=== PATIENT | female | born 1930 | race Caucasian/White ===

== ENCOUNTER 2017-11-22 19:49 | Inpatient (IN) | payer MEDICARE, BC ==
[~2017-11-22] VITALS: Ht 157.5 cm; Wt 56.2 kg
--- NOTE | ~2017-11-22 | RHP ---
PATIENT: MASON MUÑOZ MEDICAL RECORD: [id number] ACCOUNT: [id number] LOCATION:[facility].1118 : 31 ADMISSION DATE: 11/22/17 REHABILITATION HISTORY AND PHYSICAL EXAMINATION POST ADMISSION PHYSICIAN EXAMINATION POST-ADMISSION PHYSICAL EXAMINATION AND HISTORY AND PHYSICAL DATE OF ADMISSION TO THE REHAB: 11/22/2017 ADMITTING DIAGNOSIS: Spinal cord dysfunction. HISTORY OF PRESENT ILLNESS: The patient admitted to inpatient rehab for spinal cord dysfunction, traumatic and multilevel spondylosis, status post epidural abscess beginning at C6 and extending through T2. She is an 82-year-old female with chronic neck pain, progressively worse, failed outpatient therapy. She also complained of chest wall pain. She had numerous ER visits. She was sent for an outpatient workup, but was unable to tolerate pain pending the workup completion. She presented with neck pain radiating to her jaw along with shortness of breath to the ED on 11/07. She reported that the symptoms started about 2-1/2 weeks prior to her acute hospital admit. She started with pain in her right chest, radiating into her neck. She was found to have pneumonia on the right; however, troponin was elevated. On echocardiogram, she had definite anterior hypokinesis. She had a cardiac catheterization and 2 stents placed after her acute hospital stay. She had hypoxic respiratory failure, positive D-dimer. Her PE was negative. She did have pneumonia, fever up to 102. She had some shortness of breath requiring supplemental O2. She has some nausea and vomiting. She did have positive blood cultures. Her neck pain is improving on IV antibiotics. She was found to have an epidural abscess in the posterior epidural space beginning at C5 and extending through T2. Positive blood cultures were growing out gram-positive cocci. She has been receiving IV antibiotic therapy. On PT eval, the patient was having severe pain with line and having increased weakness on the right side more so than the left. She has been requiring supplemental O2. She is on telemetry. She is going to be on long-term antibiotics and these are all barriers to discharge at the time. She is debilitated secondary to prolonged hospitalization. She is living alone and independent with her mobility and ADLs prior to this. Currently set up for mod assist with her ADLs and is mod assist to total assist for mobility. She and her family plan on her discharging home hopefully to get back to her prior level of functioning. Comorbidities in this patient include acute hypoxic respiratory failure, bilateral pleural effusions, methicillin-sensitive staph, leukocytosis, neck pain, anemia, nutritional problems, hypothyroidism, hyperlipidemia, debility, severe cervicalgia, chest pain, non-Q-wave UT, coronary artery disease, pneumonia, shortness of breath, epidural abscess, CHF with an EF of 30%, and hypertension. PAST MEDICAL HISTORY: Significant for chronic neck pain, hypertension, hypothyroidism, gastroesophageal reflux disease, degenerative arthritis, history of pulmonary tuberculosis, degenerative joint disease, vertigo, and UTI. PAST SURGICAL HISTORY: Includes hysterectomy. ALLERGIES: CODEINE. CURRENT MEDICATIONS: Include Aldactone 25 mg daily, Pravachol 20 mg daily, HISTORY AND PHYSICAL [id number] MASON MUÑOZ metoprolol 50 mg daily, Cozaar 100 mg daily, Synthroid 25 mcg daily, DuoNeb updrafts, hydrochlorothiazide 25 mg daily, Lasix 20 mg daily, enoxaparin 40 mg daily, Plavix 75 mg daily, aspirin chewable 81 mg daily. She is on Ancef 2 grams every 8 hours, Phenergan 25 mg every 6 hours p.r.n., potassium 20 mEq b.i.d., Zofran 4 mg every 4 hours p.r.n., Mycostatin 5 cc q.a.c. and at bedtime, melatonin 3 mg at bedtime p.r.n., Toradol 10 mg every 8 hours p.r.n. pain, Niles 5/325 one tab every 4 hours p.r.n., and Colace 100 mg daily. HABITS: No alcohol or tobacco use. FAMILY HISTORY: Noncontributory. SOCIAL HISTORY: The patient hopes to return back home and get back to her prior level of functioning. REVIEW OF SYSTEMS: GENERAL: Does complain of weakness and fatigue. HEENT: Denies cold, cough, or congestion. CARDIOVASCULAR: Denies chest pain at this time, but has had in the past. PHYSICAL EXAMINATION: VITAL SIGNS: Stable. She is afebrile. GENERAL: Elderly female, in no acute distress upon exam. HEENT: Normocephalic and atraumatic. Mucosa moist. TMs appear normal. NECK: Does have pain with passive range of motion. CARDIOVASCULAR: Regular rate and rhythm. LUNGS: Clear at this time with no wheeze, rhonchi. or rales. ABDOMEN: Benign. EXTREMITIES: No clubbing, cyanosis or edema. NEUROLOGIC: Does have noted proximal muscle weakness. LABORATORY DATA: White count is 5.6, H&H of 11 and 35, and platelet count was noted to be 191. Sodium 137, potassium 4.2, BUN and creatinine of 17 and 1.2, and blood sugar is noted to be 102. ASSESSMENT: This is an 82-year-old female patient admitted to the rehab with a working diagnosis of spinal cord dysfunction. The patient has potential to make improvement. We will institute the following multidisciplinary therapies including, but not limited to physical, occupational, respiratory, speech, nutritional services, prosthetics and orthotics. Given her complex medical condition and risks for more complications, rehabilitation services cannot be provided at a low level of care such as a custodial facility. PLAN: 1. Admit to [facility] for intensive inpatient therapy to include the following disciplines: A. Physical therapy to improve gait, all transfer skills and bed mobility to a modified independent level. B. Occupational therapy to improve activities of daily living to a modified independent level. C. Case management to assist with discharge planning and placement options. D. Nutrition to assist with nutritional needs. E. Rehabilitation nursing to assist in monitoring the patient's underlying medical conditions and to assist with any type of bowel or bladder management. 2. The patient's current medications and medical care will be continued. HISTORY AND PHYSICAL [id number] MASON MUÑOZ 3. The patient will be placed on standard fall precautions. 4. The patient's estimated length of stay is approximately 7-10 days. 5. We will discuss this patient during care team staff meeting this week. I am going to follow up in the a.m. We will make sure that her pain is managed during her stay and we will treat appropriately. TRANSINT:[id number] Voice Confirmation ID: [id number] DOCUMENT ID: [id number] GAYLE notes whether there has been none or any medical/functional change since admission: - No change since preadmission screen. GAYLE attests patient continues to be appropriate for IRF: - Continues to be appropriate. JASPER HEALY MD at 1244 CC: [id number] DICTATION DATE: 11/23/17819 WEIGHER AND GRADER: 11/23/17 0849 DIS IN 12/09/17 [place] [id number] [facility] [place] [address]
[2017-11-22] MEDS ORDERED: BAYER CHEWABLE81 MG PO (21:13)
[2017-11-22] MEDS ORDERED: CALCIUM 500 +1 EAC3 PO (21:14)
[2017-11-22] MEDS ORDERED: ANCEF 1 GM/D5W 51 G1 IV (21:14)
[2017-11-22] MEDS ORDERED: COLACE100 MG PO (21:15)
[2017-11-22] MEDS ORDERED: PLAVIX75 MG PO (21:15)
[2017-11-22] MEDS ORDERED: FUROSEMIDE20 MG PO (21:16)
[2017-11-22] MEDS ORDERED: LOVENOX40 MG/0.4 SC (21:16)
[2017-11-22] MEDS ORDERED: HCTZ25 MG PO (21:17)
[2017-11-22] MEDS ORDERED: HYDROCODON-ACE1 EAC7 PO (21:18)
[2017-11-22] MEDS ORDERED: IPRAT-ALBUT 0.5-3 ML UPD (21:19)
[2017-11-22] MEDS ORDERED: TORADOL10 MG PO (21:20)
[2017-11-22] MEDS ORDERED: FLORAJEN3 CAPS460 MG PO (21:20)
[2017-11-22] MEDS ORDERED: COZAAR100 MG PO (21:21)
[2017-11-22] MEDS ORDERED: SYNTHROID25 MCG (21:21)
[2017-11-22] MEDS ORDERED: MELATONIN 3 MG1 TAB PO (21:22)
[2017-11-22] MEDS ORDERED: METOPROLOL TART50 MG PO (21:22)
[2017-11-22] MEDS ORDERED: NYSTATIN ORAL SU5 ML PO (21:23)
[2017-11-22] MEDS ORDERED: ONDANSETRON4 MG/2 M3 IV (21:24)
[2017-11-22] MEDS ORDERED: K-DUR20 MEQ PO (21:24)
[2017-11-22] MEDS ORDERED: POTASSIUM99 M1 PO (21:24)
[2017-11-22] MEDS ORDERED: PRAVASTATIN SOD10 MG PO (21:25)
[2017-11-22] MEDS ORDERED: PHENERGAN25 MG/ML IM (21:26)
[2017-11-22] MEDS ORDERED: ALDACTONE25 MG PO (21:26)
[2017-11-22 22:25] VITALS: BP 118/57; BMI 22.7
[2017-11-23 08:00] VITALS: BP 132/61
[2017-11-23 08:04] LABS: BASOPHILS 0.4 % (0-2); EOSINOPHILS 3.1 % (0-7); HEMATOCRIT 34.8 % (36.0-48.0); HEMOGLOBIN 10.7 g/dL (12-16); IMMATURE GRANULOCYTES 0.4 % (0-5); LYMPHOCYTES 17.1 % (15-50); MCH 28.5 pg (26.0-34.0); MCHC 30.7 g/dL (31.0-37.0); MCV 92.8 fL (80.0-100.0); MEAN PLATELET VOLUME 10.3 fL (7.4-10.4); MONOCYTES 8.1 % (2-11); NEUTROPHILS 70.9 % (40-80); PLATELET COUNT 191 10x3/uL (130-400); RBC 3.75 10x6/uL (4.00-5.40); RDW 15.4 % (11.5-14.5); WBC 5.6 10x3/uL (4.8-10.8)
[2017-11-23 08:12] LABS: ANION GAP 10.2 mmol/L (8-16); CALCIUM 9.4 mg/dL (8.5-10.1); CREATININE - SERUM 1.2 mg/dL (0.6-1.3); POTASSIUM - SERUM 4.2 mmol/L (3.5-5.1)
[2017-11-23 12:22] VITALS: Ht 157.5 cm; Wt 56.2 kg
[2017-11-23 19:35] VITALS: BP 156/73
[2017-11-24 06:58] LABS: BASOPHILS 0.7 % (0-2); EOSINOPHILS 1.7 % (0-7); HEMATOCRIT 33.7 % (36.0-48.0); HEMOGLOBIN 10.7 g/dL (12-16); IMMATURE GRANULOCYTES 0.2 % (0-5); LYMPHOCYTES 16.2 % (15-50); MCH 29.3 pg (26.0-34.0); MCHC 31.8 g/dL (31.0-37.0); MCV 92.3 fL (80.0-100.0); MEAN PLATELET VOLUME 10.2 fL (7.4-10.4); MONOCYTES 9.4 % (2-11); NEUTROPHILS 71.8 % (40-80); PLATELET COUNT 186 10x3/uL (130-400); RBC 3.65 10x6/uL (4.00-5.40); RDW 15.7 % (11.5-14.5)
[2017-11-24 07:23] LABS: CALCIUM 9.9 mg/dL (8.5-10.1); CARBON DIOXIDE 28.3 mmol/L (21.0-32.0); CREATININE - SERUM 1.2 mg/dL (0.6-1.3); POTASSIUM - SERUM 4.3 mmol/L (3.5-5.1)
[2017-11-24 08:00] VITALS: BP 157/63
[2017-11-24 19:00] VITALS: BP 134/74
[2017-11-25 08:00] VITALS: BP 121/64
[2017-11-25 19:00] VITALS: BP 126/53
[2017-11-26 07:05] LABS: BASOPHILS 0.6 % (0-2); EOSINOPHILS 3.8 % (0-7); HEMATOCRIT 33.1 % (36.0-48.0); HEMOGLOBIN 10.3 g/dL (12-16); IMMATURE GRANULOCYTES 0.2 % (0-5); MCHC 31.1 g/dL (31.0-37.0); MCV 93.2 fL (80.0-100.0); MEAN PLATELET VOLUME 10.5 fL (7.4-10.4); MONOCYTES 10.5 % (2-11); NEUTROPHILS 67.9 % (40-80); PLATELET COUNT 193 10x3/uL (130-400); RBC 3.55 10x6/uL (4.00-5.40); RDW 16.1 % (11.5-14.5)
[2017-11-26 07:07] LABS: ANION GAP 12.2 mmol/L (8-16); CALCIUM 9.8 mg/dL (8.5-10.1); CARBON DIOXIDE 27.4 mmol/L (21.0-32.0); CREATININE - SERUM 1.3 mg/dL (0.6-1.3); POTASSIUM - SERUM 4.6 mmol/L (3.5-5.1)
[2017-11-26 08:00] VITALS: BP 124/69
[2017-11-26 20:00] VITALS: BP 160/75
[2017-11-27 08:56] VITALS: BP 142/67
[2017-11-27 21:54] VITALS: BP 155/70
[2017-11-28 09:04] VITALS: BP 123/66
[2017-11-28 20:56] VITALS: BP 129/72
[2017-11-29 06:41] LABS: BASOPHILS 0.2 % (0-2); EOSINOPHILS 4.9 % (0-7); HEMATOCRIT 34.6 % (36.0-48.0); HEMOGLOBIN 10.8 g/dL (12-16); IMMATURE GRANULOCYTES 0.4 % (0-5); LYMPHOCYTES 22.2 % (15-50); MCH 29.1 pg (26.0-34.0); MCHC 31.2 g/dL (31.0-37.0); MCV 93.3 fL (80.0-100.0); MEAN PLATELET VOLUME 10.6 fL (7.4-10.4); MONOCYTES 13.5 % (2-11); NEUTROPHILS 58.8 % (40-80); PLATELET COUNT 214 10x3/uL (130-400); RBC 3.71 10x6/uL (4.00-5.40); RDW 16.3 % (11.5-14.5); WBC 4.7 10x3/uL (4.8-10.8)
[2017-11-29 07:01] LABS: ANION GAP 15.4 mmol/L (8-16); C-REACTIVE PROTEIN 1.5 mg/dL (0.0-0.9); CARBON DIOXIDE 23.8 mmol/L (21.0-32.0); CREATININE - SERUM 1.2 mg/dL (0.6-1.3); POTASSIUM - SERUM 4.2 mmol/L (3.5-5.1)
[2017-11-29 08:00] VITALS: BP 112/56
[2017-11-29 08:18] LABS: ERYTHROCYTE SEDIMENTATION RATE 35 mm/hr (0-42)
[2017-11-30 07:00] VITALS: BP 123/61
[2017-11-30 20:09] VITALS: BP 126/64
[2017-12-01 06:50] LABS: BASOPHILS 0.5 % (0-2); EOSINOPHILS 5.9 % (0-7); HEMOGLOBIN 10.5 g/dL (12-16); IMMATURE GRANULOCYTES 0.5 % (0-5); LYMPHOCYTES 25.1 % (15-50); MCH 29.1 pg (26.0-34.0); MCHC 31.8 g/dL (31.0-37.0); MCV 91.4 fL (80.0-100.0); MEAN PLATELET VOLUME 10.2 fL (7.4-10.4); MONOCYTES 12.4 % (2-11); NEUTROPHILS 55.6 % (40-80); PLATELET COUNT 201 10x3/uL (130-400); RBC 3.61 10x6/uL (4.00-5.40); RDW 16.1 % (11.5-14.5); WBC 4.4 10x3/uL (4.8-10.8)
[2017-12-01 07:04] LABS: ANION GAP 14.9 mmol/L (8-16); CALCIUM 9.5 mg/dL (8.5-10.1); CARBON DIOXIDE 21.5 mmol/L (21.0-32.0); CREATININE - SERUM 1.2 mg/dL (0.6-1.3); POTASSIUM - SERUM 4.4 mmol/L (3.5-5.1)
[2017-12-01 08:27] VITALS: BP 134/52
[2017-12-01 20:29] VITALS: BP 124/53
[2017-12-02 08:00] VITALS: BP 115/58
[2017-12-02 19:00] VITALS: BP 113/55
[2017-12-03 08:00] VITALS: BP 136/57
[2017-12-03 08:00] LABS: BASOPHILS 0.5 % (0-2); EOSINOPHILS 5.1 % (0-7); HEMATOCRIT 31.8 % (36.0-48.0); HEMOGLOBIN 10.1 g/dL (12-16); IMMATURE GRANULOCYTES 0.3 % (0-5); LYMPHOCYTES 26.2 % (15-50); MCH 29.4 pg (26.0-34.0); MCHC 31.8 g/dL (31.0-37.0); MCV 92.4 fL (80.0-100.0); MEAN PLATELET VOLUME 9.6 fL (7.4-10.4); MONOCYTES 11.5 % (2-11); NEUTROPHILS 56.4 % (40-80); PLATELET COUNT 174 10x3/uL (130-400); RBC 3.44 10x6/uL (4.00-5.40); RDW 16.2 % (11.5-14.5); WBC 3.9 10x3/uL (4.8-10.8)
[2017-12-03 08:09] LABS: ANION GAP 10.2 mmol/L (8-16); CALCIUM 9.4 mg/dL (8.5-10.1); CARBON DIOXIDE 26.2 mmol/L (21.0-32.0); CREATININE - SERUM 1.3 mg/dL (0.6-1.3); POTASSIUM - SERUM 4.4 mmol/L (3.5-5.1)
[2017-12-03 19:00] VITALS: BP 121/61
[2017-12-04 12:00] VITALS: BP 132/57
[2017-12-04 21:31] VITALS: BP 128/61
[2017-12-05 10:32] VITALS: BP 119/63
[2017-12-05 21:31] VITALS: BP 140/67
[2017-12-06 06:49] LABS: BASOPHILS 0.8 % (0-2); EOSINOPHILS 4.5 % (0-7); HEMATOCRIT 34.1 % (36.0-48.0); HEMOGLOBIN 10.7 g/dL (12-16); IMMATURE GRANULOCYTES 0.3 % (0-5); LYMPHOCYTES 26.3 % (15-50); MCH 29.2 pg (26.0-34.0); MCHC 31.4 g/dL (31.0-37.0); MCV 93.2 fL (80.0-100.0); MEAN PLATELET VOLUME 10.3 fL (7.4-10.4); MONOCYTES 11.4 % (2-11); NEUTROPHILS 56.7 % (40-80); PLATELET COUNT 156 10x3/uL (130-400); RBC 3.66 10x6/uL (4.00-5.40); RDW 16.1 % (11.5-14.5)
[2017-12-06 07:06] LABS: ANION GAP 12.7 mmol/L (8-16); C-REACTIVE PROTEIN 0.2 mg/dL (0.0-0.9); CALCIUM 9.3 mg/dL (8.5-10.1); CREATININE - SERUM 1.2 mg/dL (0.6-1.3); POTASSIUM - SERUM 4.7 mmol/L (3.5-5.1)
[2017-12-06 07:38] LABS: ERYTHROCYTE SEDIMENTATION RATE 27 mm/hr (0-42)
[2017-12-06 08:00] VITALS: BP 129/68
[2017-12-06] MEDS ORDERED: HYDROCODON-ACE1 EAC7 PO (08:51)
[2017-12-06 20:34] VITALS: BP 111/49
[2017-12-07 08:00] VITALS: BP 103/69
[2017-12-07] MEDS ORDERED: CEFAZOLIN2 GM/50 ML IV (08:50)
[2017-12-07 19:00] VITALS: BP 119/53
[2017-12-08 08:00] VITALS: BP 120/63
[2017-12-08 20:31] VITALS: BP 127/51
[2017-12-09 08:00] VITALS: BP 113/46
== END 2017-12-09 14:30 | DRG 91 ==
LOC: D.REHAB 19:49 → EDBD 19:49 → D.REHAB 12-09 14:30
PROVIDERS: Emergency Medicine; Student in an Organized Health Care Education/Training Program
DX: G95.9 Disease of spinal cord, unspecified (principal); J96.01 Acute respiratory failure with hypoxia; J18.9 Pneumonia, unspecified organism; G06.2 Extradural and subdural abscess, unspecified; I21.4 Non-ST elevation (NSTEMI) myocardial infarction; M48.30 Traumatic spondylopathy, site unspecified; J90 Pleural effusion, not elsewhere classified; B95.62 Methicillin resistant Staphylococcus aureus infection as the cause of diseases classified elsewhere; D72.829 Elevated white blood cell count, unspecified; M54.2 Cervicalgia; D64.9 Anemia, unspecified; E03.9 Hypothyroidism, unspecified; E78.5 Hyperlipidemia, unspecified; R07.9 Chest pain, unspecified; R53.81 Other malaise; I25.10 Atherosclerotic heart disease of native coronary artery without angina pectoris; I11.0 Hypertensive heart disease with heart failure; I50.9 Heart failure, unspecified